=== PATIENT | male | born 2000 | race Caucasian/White ===

== ENCOUNTER 2020-04-25 13:27 | Emergency (ER) | payer BC, SELFPAY ==
[2020-04-25 13:35] VITALS: BP 148/89; PULSE 94; RESP 16; TEMP 37.2; O2SAT 97
--- NOTE | 2020-04-25 14:54 | ED.GENADUL_ITS ---
Discharge Plan Disposition Patient Disposition: HOME Condition: Stable Discharge Details Chief Complaint: GenMedical Clinical Impression: Encounter for assessment of STD exposure Primary Care Provider: None,None ED Provider: Joshua Escobar Home Meds and New Rx's Prescriptions: No Action No Known Home Meds RF: 0 Discharge Instructions Instructions: Sexually Transmitted Diseases (ED) Additional Instructions: At this time you are asymptomatic but your testing for HIV, syphilis, gonorrhea, chlamydia are all pending. As we discussed given the duration of your potential exposure, prophylactic medication today is not indicated, and a false testing from evaluation today needs to be confirmed a few months from now through a primary care provider. In the meantime we discussed refraining from sexual activity as you can still transmit a potential STD even when using condoms. Please follow the instructions given to you by the care management team, reach out to Dr. Espana later today or tomorrow to discuss outpatient evaluation and results of your testing today. Medical Decision Making 19-year-old asymptomatic gentleman presents requesting STD testing. He reports being sexually active with one female for the last year, did not always wear protection, last sexual intercourse roughly 2 weeks ago. He tells me he was c ontacted and told that she tested positive for HIV several months ago. He denies any history of STD. Discussed STD testing, symptoms, treatment in length. Given the timeframe of his potential exposure, prophylactic treatment likely not indicated. Patient is otherwise asymptomatic, treatment for presumptive GC and chlamydia also likely not indicated. Patient was offered treatment but after discussing the risks and benefits, he is comfortable not initiating any treatment today. He will be treated for gonorrhea, chlamydia, HIV, syphilis. We discussed in length that given his most recent exposure could have been to weeks ago or so, a negative test today is reassuring, but he will need to be tested again in several months through his primary care provider regarding this potential exposure. Patient understands that having sexual intercourse, while wearing condoms, does not ensure that a potential STD will not be exposed. I did have our care management team come down to the ER to talk with the patient regarding expediting outpatient care follow-up. Patient had ample time to ask additional questions, all of his questions were answered, and at discharge he had no additional questi ons or concerns. Was comfortable with discharge. All of his labs are pending. Medical Records Medical records reviewed: Yes I reviewed the patient's medical records. HPI General Mode of arrival: ambulatory . Date/Time Provider Initiated Documentation: 04/25/20 13:39 . Limitations to Documentation: no limitations . Information obtained by: patient . HPI Narrative: This is a 19-year-old gentleman with no significant past medical history requesting testing for STDs. He is currently asymptomatic but reports that his ex-significant other of over a year told him that she tested positive for HIV several months ago. He reports that they broke up approximately 1-2 weeks ago and he has not been sexually active in the last 2 weeks. He reports only 1 sexual partner, his ex- significant other, over the past year. They did not always use protection. Patient reports that he has not seen the test results but he was notified that she tested positive. Patient reports that he feels increased stress over the potential exposure but denies any symptoms whatsoever. Denies fever, abdominal pain, nausea, vomiting, fatigue, recent illness or trauma. Denies penile pain, discharge, lesions. He denies any history of STDs Related Data Home Medications Medication Instructions Recorded Confirmed Unknown [No Known Home Meds] 04/25/20 04/25/20 Allergies Allergy/AdvReac Type Severity Reaction Status Date / Time No Known Allergies Allergy Unverified 04/25/20 13:40 General Stated Complaint: GenMedical ROBERTO CARLOS: 4 Review of Systems Constitutional Constitutional: Denies fever(s) and Denies weakness Cardiovascular Cardiovascular: Denies chest pain and Reports dyspnea Respiratory Respiratory: Denies cough and Reports dyspnea Gastrointestinal Gastrointestinal: Denies abdominal pain, Denies nausea and Denies vomiting Genitourinary Genitourinary: Denies hematospermia, Denies hematuria, Denies genital lesions, Denies genital pain, Denies dysuria, Denies penile discharge and Denies testicular pain Musculoskeletal Musculoskeletal: Denies back pain, Denies numbness and Denies tingling Integumentary/Breasts Skin/Breast: Denies rash Neurologic Neurologic: Denies numbness, Denies tingling and Denies weakness [facility] Social History Smoking/Tobacco Use Status: Never Alcohol Intake: current Drug use: Daily Substance use type: marijuana Do you feel safe at home: Yes Do you feel safe in your relationship?: Yes Exam Const General: cooperative, healthy appearing, comfortable and no acute distress Orientation: alert, awake and oriented x3 HENMT Head: normal to inspection, normocephalic and atraumatic Mouth: moist mucous membranes Eyes Conjunctivae: conjunctivae normal Neck Neck: normal visual inspection, trachea midline and supple Resp Effort & Inspection: normal respiratory effort and able to speak in complete sentences Auscultation: clear to auscultation bilaterally Cardio Rate: regular rate Rhythm: regular rhythm GI Palpation: soft and nontender Back/Spine/Pelvis Back: No back tenderness Skin General skin exam: no rashes or lesions noted Neuro General: patient alert, patient awake, moves all extremities and no focal motor deficits Sensory Exam: no sensory deficits noted Psych Appearance: grossly normal Mental Status: mental status grossly normal Course Vital Signs Vital signs: Vital Signs Temperature 37.2 C 04/25/20 13:35 Pulse 94 H 04/25/20 13:35 Respiratory Rate 16 04/25/20 13:35 Blood Pressure 148/89 H 04/25/20 13:35 Pulse Oximetry 97 04/25/20 13:35 Temperature 37.2 C 04/25/20 13:35 Temperature Source Skin 04/25/20 13:35 Pulse 94 H 04/25/20 13:35 Respiratory Rate 16 04/25/20 13:35 Respiratory Effort Non-Labored 04/25/20 13:55 Respiratory Depth Normal 04/25/20 13:55 Respiratory Pattern Normal 04/25/20 13:55 Blood Pressure 148/89 H 04/25/20 13:35 Blood Pressure Position Sitting 04/25/20 13:35 Pulse Oximetry 97 04/25/20 13:35 Oxygen Delivery Method Room Air 04/25/20 13:35 Oxygen Flow Rate 0 04/25/20 13:35 Pain Level 0 04/25/20 13:35
--- NOTE | 2020-04-25 15:36 | CMPROGNOTE_ITS ---
- If Service Date Differs Date of service: 04/25/20 Time of Service: 15:36 Care Management Progress Note TOÑO meets with Phong at the request of ED provider. Phong is in need of a primary care physician. He states he formerly saw Dr. Espana at [facility] in [place] but has not been there in several years. TOÑO offers to coordinate a referral to the on-call teledoc but Phong would prefer to remain with [facility]. TOÑO contacts Dr. Espana's office to inquire if Phong is still an active patient at their office and is informed that he is not. TOÑO is instructed to have Phong contact them to re-establish care. This information is discussed with Phong and he is provided with contact information for [facility].
[2020-04-26 10:41] LABS: Syphilis Serology (RPR) Negative (Negative)
[2020-04-29 13:19] LABS: Chlamydia Result Negative (Negative); GC Result Negative (Negative)
[2020-05-01 11:48] LABS: HIV-1/2 Ag & Ab Screen Negative (Negative)
--- NOTE | 2020-05-06 09:34 | NUR.NOTE ---
Nursing Note: Patient called this morning requesting result of HIV test. Reviewed the results with Dr. Valdes. Called the patient and gave him the negative results. Cindi Barakat.
== END 2020-04-25 15:00 | disposition home or self-care (01) ==
PROVIDERS: Emergency Provider Physician Assistant
DX: F43.8 Other reactions to severe stress (principal); Z20.2 Contact with and (suspected) exposure to infections with a predominantly sexual mode of transmission
CPT/HCPCS: 87389; 87491; 87591; 99282; 86592; 99283